=== PATIENT | male | born 1955 | race Caucasian/White ===

== ENCOUNTER 2021-06-25 00:24 | Day surgery (SDC) | payer OTHER, SELFPAY ==
[2021-06-18 14:58] VITALS: BMI 19.6
[2021-06-25 08:54] VITALS: BP 116/70; PULSE 63; RESP 18; TEMP 36.1; O2SAT 100
--- NOTE | 2021-06-25 09:07 | P.PNAN_ITS ---
Anes - Initial Pre Proc Eval Procedure: Operation Date: 06/25/21 10:00 Proposed Procedures p Screening Colonoscopy - Ilan Cortés MD Date/Time: 06/25/21 09:07 Surgeon: Ilan Cortés MD Pre Op Diagnosis: neoplasm screening z12.11 Patient Data Age: 65 Gender: M Height: 1.8 m Weight: 60.1 kg Last Vital Signs Temp 36.1 C L 06/25/21 08:54 Pulse 63 06/25/21 08:54 Resp 18 06/25/21 08:54 BP 116/70 06/25/21 08:54 Pulse Ox 100 06/25/21 08:54 Allergies Allergy/AdvReac Type Severity Reaction Status Date / Time No Known Allergies Allergy Verified 06/25/21 08:53 Home Medications Medication Instructions Recorded Confirmed Type loratadine 10 mg tablet 10 mg PO DAILY PRN 04/17/21 06/18/21 History magnesium 200 mg tablet 200 mg PO DAILY 04/17/21 06/18/21 History cholecalciferol (vitamin D3) 1,250 1,250 mcg PO WEEKLY #14 cap 05/04/21 06/18/21 Rx mcg (50,000 unit) capsule Patient hx anesthesia problems: none Family hx anesthesia problems: none Results Review: All pre-operative results and documents have been reviewed as part of the pre-operative evaluation. [facility] Past Medical History Medical History Dyslipidemia Environmental allergies History of renal calculi Mid back pain, chronic Recurrent genital herpes Skin cancer Surgical History Surgical History History of tonsillectomy (~1984) [place] teeth extracted (~1994) Family History Family History Father Alcoholism Asthma Depression Anxiety Heart disease Mother Hypertension Cerebrovascular accident Sibling Alcoholism Asthma Cancer Heart disease Hypertension Social History Social History Smoking status: Never smoker Alcohol intake: current Alcohol use details: Wine 5X yearly Substance use: never Living arrangements: with family Gender identity (if verbalized by the patient): Male Spiritual care concerns: No Anes - Eval Final PreProcedure Day of Procedure 06/25/21 09:07 Patient weight: normal Heart: regular rate and rhythm Lungs: clear to auscultation Airway: Mallampati scale class II Neurological: alert and oriented Last oral intake: >/= 8 hours ASA classification: II Emergent: no Anesthetic plan: proceed Anesthesia type and monitoring: general GIVS and standard monitoring Results Review: All pre-operative results and documents have been reviewed as part of the pre-operative evaluation. Informed Consent: The patient's anesthetic plan and its attendant risks and benefits were discussed with the patient/family/POA. Questions were solicited and answers provided to the satisfaction of the patient/family/POA.
[2021-06-25] MEDS: LACTATED RINGERS 1,000 ML 150 ML IV CONT (09:13)
--- NOTE | 2021-06-25 09:15 | WPDGICN ---
Assessment and Plan Assessment and plan (1) Encounter for screening colonoscopy: Code(s): Z12.11 - Encounter for screening for malignant neoplasm of colon Status: Acute Assessment and Plan: Patient presents for screening colonoscopy. Further recommendations will be given after endoscopy. GI Consult Note Consult date/time: 06/25/21 09:15 HPI: Pacheco Vargas is a 65 year old male Presents for screening colonoscopy. Patient reports that his current weight appetite and bowel movements are normal. Patient denies abdominal pain. He has had no bleeding. He presents today for neoplasia screening colonoscopy. Review of Systems Review of Systems: All systems reviewed & are unremarkable except as noted in HPI and below PMFSH Past Medical History Medical History Dyslipidemia Environmental allergies History of renal calculi Mid back pain, chronic Recurrent genital herpes Skin cancer Surgical History Surgical History History of tonsillectomy (~1984) [place] teeth extracted (~1994) Family History Family History Father Alcoholism Asthma Depression Anxiety Heart disease Mother Hypertension Cerebrovascular accident Sibling Alcoholism Asthma Cancer Heart disease Hypertension Social History Social History Smoking status: Never smoker Alcohol intake: current Alcohol use details: Wine 5X yearly Substance use: never Living arrangements: with family Gender identity (if verbalized by the patient): Male Spiritual care concerns: No Meds Home Medications and Allergies Home Medications Medication Instructions Recorded Confirmed Type loratadine 10 mg tablet 10 mg PO DAILY PRN 04/17/21 06/18/21 History magnesium 200 mg tablet 200 mg PO DAILY 04/17/21 06/18/21 History cholecalciferol (vitamin D3) 1,250 1,250 mcg PO WEEKLY #14 cap 05/04/21 06/18/21 Rx mcg (50,000 unit) capsule Allergies Allergy/AdvReac Type Severity Reaction Status Date / Time No Known Allergies Allergy Verified 06/25/21 08:53 Vital Signs Vital Signs - 24 hr 06/25/21 08:54 Temperature 97.0 F L Pulse Rate 63 Respiratory Rate 18 Blood Pressure 116/70 Pulse Oximetry 100 Exam Narrative: Physical exam reveals patient be alert. Vital signs stable. HEENT exam is unremarkable. Patient is anicteric. Lungs are clear to auscultation and percussion. Heart is without murmur or extra sounds. Abdominal exam bowel sounds are present soft nontender with no organomegaly. Digital external rectal exam is normal.
[2021-06-25 09:36] VITALS: BP 112/65; PULSE 71; RESP 17; O2SAT 100
[2021-06-25 09:46] VITALS: BP 110/57; PULSE 66; RESP 17; O2SAT 100
[2021-06-25 09:55] VITALS: BP 114/68; PULSE 53; RESP 20; O2SAT 100
== END 2021-06-25 10:15 | disposition home or self-care (01) ==
PROVIDERS: PCP Family Medicine; Visit Provider Internal Medicine Gastroenterology
PROC: 0DJD8ZZ Inspection of Lower Intestinal Tract, Via Natural or Artificial Opening Endoscopic (ICD-10-PCS; CPT 45378; principal; 2021-06-25 10:00)
DX: Z12.11 Encounter for screening for malignant neoplasm of colon (principal); K64.1 Second degree hemorrhoids; E78.5 Hyperlipidemia, unspecified
CPT/HCPCS: 45378; J2704; J7120

== ENCOUNTER 2022-04-26 08:16 | Outpatient (CLI) | payer OTHER, SELFPAY ==
[2022-04-26 17:58] LABS: Basophils Absolute Auto 0.1 K/mm3 (0.0-0.1); Basophils Percent Auto 1.3 % (0.2-1.2); Eosinophils Absolute Auto 0.4 K/mm3 (0-0.3); Eosinophils Percent Auto 6.1 % (0-4.4); Hematocrit 45.1 % (42.0-52.0); Hemoglobin 14.3 g/dL (14.0-18.0); Immature Granulocyte Absolute 0.01 K/mm3 (0.00-0.031); Immature Granulocyte Percent A 0.2 % (0-0.5); Lymphocytes Absolute Auto 2.04 K/mm3 (0.9-3.2); Lymphocytes Percent Auto 33.4 % (18.3-44.2); Mean Corpuscular HGB Conc 31.7 g/dl (32-36); Mean Corpuscular Hemoglobin 30.6 pg (26-34); Mean Corpuscular Volume 96.4 fl (80-100); Mean Platelet Volume 11.6 fl (7.4-10.4); Monocytes Absolute Auto 0.6 K/mm3 (0.1-0.6); Monocytes Percent Auto 10.3 % (2.6-8.5); Neutrophils Percent Auto 48.7 % (45.5-73.1); Platelet Count Result 237 k/mm3 (150-375); Red Blood Count 4.68 M/mm3 (4.6-6.20); Red Cell Distribution Width 13.6 % (11.5-14.5); White Blood Count 6.1 K/mm3 (4.5-10.0)
[2022-04-26 18:06] LABS: Alanine Aminotransferase 24 U/L (6-50); Albumin Level 4.1 g/dL (3.5-5.1); Alkaline Phosphatase 90 U/L (38-126); Anion Gap 9 mmol/L (8-16); Aspartate Amino Transferase 41 U/L (17-59); Bilirubin,Total 0.8 mg/dL (0.2-1.3); Blood Urea Nitrogen 19 mg/dL (9-20); Calcium 10.2 mg/dL (8.4-10.2); Carbon Dioxide 29 mmol/L (22-30); Chloride 105 mmol/L (98-107); Cholesterol 194 mg/dL (0-200); Estimated Glomerular Filt Rate > 60; Glucose 92 mg/dL (65-110); HDL Direct 38 mg/dL; Potassium 4.6 mmol/L (3.4-5.0); Sodium 143 mmol/L (137-145); Triglycerides 119 mg/dL (<150)
[2022-04-26 18:17] LABS: LDL Cholesterol Direct 119 mg/dL
== END 2022-04-26 08:17 | disposition home or self-care (01) ==
LOC: ANHGOSHLAB 08:18
PROVIDERS: PCP Family Medicine; Visit Provider Family Medicine
DX: E55.9 Vitamin D deficiency, unspecified (principal); Z12.5 Encounter for screening for malignant neoplasm of prostate; E78.5 Hyperlipidemia, unspecified; Z13.29 Encounter for screening for other suspected endocrine disorder
CPT/HCPCS: 36415; 80053; 80061; 82306; 84153; 85025; G0103

== ENCOUNTER 2023-04-24 08:40 | Outpatient (CLI) | payer OTHER, SELFPAY ==
[2023-04-24 13:04] LABS: Basophils Absolute Auto 0.1 K/mm3 (0.0-0.1); Basophils Percent Auto 1.4 % (0.2-1.2); Eosinophils Absolute Auto 0.3 K/mm3 (0-0.3); Eosinophils Percent Auto 5.2 % (0-4.4); Hematocrit 45.3 % (42.0-52.0); Hemoglobin 14.3 g/dL (14.0-18.0); Immature Granulocyte Absolute 0.01 K/mm3 (0.00-0.031); Immature Granulocyte Percent A 0.2 % (0-0.5); Lymphocytes Absolute Auto 2.03 K/mm3 (0.9-3.2); Lymphocytes Percent Auto 32.2 % (18.3-44.2); Mean Corpuscular HGB Conc 31.6 g/dl (32-36); Mean Corpuscular Hemoglobin 30.4 pg (26-34); Mean Corpuscular Volume 96.4 fl (80-100); Mean Platelet Volume 11.1 fl (7.4-10.4); Monocytes Absolute Auto 0.6 K/mm3 (0.1-0.6); Monocytes Percent Auto 9.5 % (2.6-8.5); Neutrophils Absolute Auto 3.2 K/mm3 (1.3-6.7); Neutrophils Percent Auto 51.5 % (45.5-73.1); Platelet Count Result 227 k/mm3 (150-375); Red Cell Distribution Width 13.2 % (11.5-14.5); White Blood Count 6.3 K/mm3 (4.5-10.0)
[2023-04-24 13:12] LABS: Alanine Aminotransferase 28 U/L (6-50); Albumin Level 4.1 g/dL (3.5-5.1); Alkaline Phosphatase 82 U/L (38-126); Anion Gap 4 mmol/L (8-16); Aspartate Amino Transferase 39 U/L (17-59); Bilirubin,Total 0.9 mg/dL (0.2-1.3); Blood Urea Nitrogen 20 mg/dL (9-20); Calcium 9.7 mg/dL (8.4-10.2); Carbon Dioxide 29 mmol/L (22-30); Chloride 106 mmol/L (98-107); Cholesterol 198 mg/dL (0-200); Estimated Glomerular Filt Rate > 60; Glucose 88 mg/dL (65-110); HDL Direct 35 mg/dL; Potassium 5.1 mmol/L (3.4-5.0); Sodium 139 mmol/L (137-145); Triglycerides 98 mg/dL (<150)
[2023-04-24 13:23] LABS: LDL Cholesterol Direct 120 mg/dL
[2023-04-24 13:44] LABS: Prostate Specific Antigen 2.3 ng/mL (< OR = 4.0)
[2023-04-24 23:29] LABS: Vitamin D 25 Hydroxy 46.3 ng/mL
== END 2023-04-24 08:41 | disposition home or self-care (01) ==
LOC: ANHGOSHLAB 08:41
PROVIDERS: PCP Family Medicine; Visit Provider Family Medicine
DX: E78.5 Hyperlipidemia, unspecified (principal); E55.9 Vitamin D deficiency, unspecified; R63.4 Abnormal weight loss; E53.8 Deficiency of other specified B group vitamins; Z12.5 Encounter for screening for malignant neoplasm of prostate; Z79.899 Other long term (current) drug therapy; Z13.29 Encounter for screening for other suspected endocrine disorder
CPT/HCPCS: 36415; 80053; 80061; 82306; 82607; 84153; 84443; 85025; G0103

== ENCOUNTER 2024-04-29 08:19 | Outpatient (CLI) | payer OTHER, SELFPAY ==
[2024-04-29 19:38] LABS: Alanine Aminotransferase 22 U/L (6-50); Albumin Level 4.5 g/dL (3.5-5.1); Alkaline Phosphatase 91 U/L (38-126); Anion Gap 8 mmol/L (4-12); Aspartate Amino Transferase 40 U/L (17-59); Bilirubin,Total 1.1 mg/dL (0.2-1.3); Blood Urea Nitrogen 22 mg/dL (9-20); Calcium 9.7 mg/dL (8.4-10.2); Carbon Dioxide 30 mmol/L (22-30); Chloride 103 mmol/L (98-107); Cholesterol 252 mg/dL (0-200); Estimated Glomerular Filt Rate > 60; Glucose 78 mg/dL (65-110); HDL Direct 38 mg/dL; Potassium 5.2 mmol/L (3.4-5.0); Sodium 141 mmol/L (137-145); Triglycerides 158 mg/dL (<150)
[2024-04-29 19:49] LABS: LDL Cholesterol Direct 171 mg/dL
[2024-04-29 20:03] LABS: Prostate Specific Antigen 2.1 ng/mL (< OR = 4.0)
[2024-04-29 20:22] LABS: Hematocrit 47.2 % (42.0-52.0); Mean Corpuscular HGB Conc 31.8 g/dl (32-36); Mean Corpuscular Volume 97.5 fl (80-100); Mean Platelet Volume 11.8 fl (7.4-10.4); Platelet Count Result 214 k/mm3 (150-375); Red Blood Count 4.84 M/mm3 (4.6-6.20); Red Cell Distribution Width 13.6 % (11.5-14.5); White Blood Count 5.9 K/mm3 (4.5-10.0)
== END 2024-04-29 08:20 | disposition home or self-care (01) ==
LOC: ANHGOSHLAB 08:21
PROVIDERS: PCP Family Medicine; Visit Provider Nurse Practitioner
DX: Z00.00 Encounter for general adult medical examination without abnormal findings (principal); Z11.59 Encounter for screening for other viral diseases; E55.9 Vitamin D deficiency, unspecified; Z12.5 Encounter for screening for malignant neoplasm of prostate
CPT/HCPCS: 36415; 80053; 80061; 82306; 84153; 84443; 85027; 86803; G0103

== ENCOUNTER 2024-10-27 14:21 | Outpatient (CLI) | payer OTHER, SELFPAY ==
--- NOTE | ~2024-10-27 | XR_ITS ---
EXAM: XR shoulder LT min 2V DATE: 10/27/2024 14:33 HISTORY: M25.512 - Pain in left shoulder . COMPARISON: None available. FINDINGS: Decreased mineralization. No fracture or dislocation. No lytic or blastic lesion. Mild deg enerative changes at the glenohumeral and acromioclavicular joints. No erosion or periosteal change. Soft tissues within normal limits. IMPRESSION: Osteopenia. Mild polyarticular osteoarthritis of the left shoulder. Reviewed, dictated and finalized at location K. EF CHARGE NURSE
== END 2024-10-27 14:22 | disposition home or self-care (01) ==
LOC: GOSHIMG 14:22
PROVIDERS: PCP Family Medicine; Visit Provider Family Medicine
DX: M85.812 Other specified disorders of bone density and structure, left shoulder (principal); M25.512 Pain in left shoulder
CPT/HCPCS: 73030

== ENCOUNTER 2024-10-29 08:03 | Outpatient (CLI) | payer OTHER, SELFPAY ==
[2024-10-29 13:53] LABS: Alanine Aminotransferase 31 U/L (6-50); Albumin Level 4.2 g/dL (3.5-5.1); Alkaline Phosphatase 97 U/L (38-126); Anion Gap 8 mmol/L (4-12); Aspartate Amino Transferase 47 U/L (17-59); Bilirubin,Total 0.9 mg/dL (0.2-1.3); Blood Urea Nitrogen 19 mg/dL (9-20); Carbon Dioxide 31 mmol/L (22-30); Chloride 105 mmol/L (98-107); Cholesterol 155 mg/dL (0-200); Estimated Glomerular Filt Rate > 60; Glucose 80 mg/dL (65-110); HDL Direct 46 mg/dL; Potassium 5.1 mmol/L (3.4-5.0); Sodium 144 mmol/L (137-145); Triglycerides 73 mg/dL (<150); Vitamin D 25 Hydroxy 35.7 ng/mL
[2024-10-29 14:04] LABS: LDL Cholesterol Direct 97 mg/dL
[2024-10-29 14:37] LABS: Hemoglobin A1C 5.5 % (<5.7)
== END 2024-10-29 08:04 | disposition home or self-care (01) ==
LOC: ANHGOSHLAB 08:03
PROVIDERS: PCP Family Medicine; Visit Provider Family Medicine
DX: E78.5 Hyperlipidemia, unspecified (principal); Z79.899 Other long term (current) drug therapy; I10 Essential (primary) hypertension; E55.9 Vitamin D deficiency, unspecified; R73.9 Hyperglycemia, unspecified
CPT/HCPCS: 36415; 80053; 80061; 82306; 83036

== ENCOUNTER 2025-05-20 08:22 | Outpatient (CLI) | payer OTHER, SELFPAY ==
--- OUTSIDE RECORDS SUMMARY | 2019-11-14 18:11 | XMS_ITS | Continuity of Care Document ---
Author Organization [facility] Address [address] [place] [address] [place] [address] Phone Care Team Providers Care Avionics Mechanic Name Role Phone Kelby Hector MD Unavailable Unavailable Allergies, Adverse Reactions, Alerts Substance Reaction Status Criticality No Known Allergies Active No Inform ation Medications Medication Instructions Dosage Effective Dates (start - stop) Status Comments Valtrex 1 gram tablet take 1 tablet by oral route every day 1000 MG - Active Procedures Procedure Date PREV VISIT, EST, AGE 40-64 OFFICE/OUTPATIENT VISIT, EST OFFICE/OUTPATIENT VISIT, EST PREV VISIT, NEW, AGE 40-64 OFFICE/OUTPATIENT VISIT, NEW Advance Directives Directive Yes / No Effective Date File Name No Information Encounters Encounter Description Practice Location Reason(s) For Visit Diagnoses Date Provider Providers Copied on Encounter [facility], [address] [place], [id number], tel:[phone] [facility] No Information 0 Krunal Lama. [address], [address], [id number] , [place]. tel:[phone] Referring Provider: Kelby Hector, [address], [id number]. tel:[phone] PREV VISIT, EST, AGE 40-64 [facility], [address] [place], [place], [id number], [place] tel:[phone] [facility] physical (chief complaint) HyperlipidemiaHerpe sviral infection of other male genital organsEncounter for general adult medical exam w abnormal findingsNevus, non-neoplastic 0 [phone] Krunal Lama. [address], [place], [place], [id number] , [place]. [phone] Referring Provider: Jerilyn Noguera [address], [place], [place], [id number]. tel:[phone] OFFICE/OUTPA TIENT VISIT, [facility], [address], [place], [place], [id number], [place] tel:[phone] [facility] HSV II (chief complaint) HLP (chief complaint) URI (chief complaint) HyperlipidemiaAcute bronchitisHerpesvir al infection of other male genital organs 8 Krunal Lama. [address], [place], [place], [id number] , [place]. tel:[phone] Referring Provider: Jerilyn Nougera [facility], [place], [place], [id number]. tel:[phone] PREV VISIT, NEW, AGE 40-64 [facility], [address], [place], [place], [id number], [place] tel:[phone] [facility] PHysical (chief complaint) Encounter for general adult medical exam w abnormal findingsHerpesviral infection of other male genital organsEncounter for screening for other viral diseasesNevus, non-neoplasticPain in left shoulder 8 [facility]al [address] [facility] [address] [place], [place], [address] , [place]. [phone] Referring Provider: Jerilyn Noguera [address] [facility] [address], [place], [place], [id number]. tel:[phone] Family History Family Member Type Diagnosis Age At Onset Father Problem (finding) of cardia c related issue (Cause Of ) 81 Brother Problem (finding) prostate CA 62 Mother Problem (finding) of 95 for age rela leigha issue Payers Payer name Insurance type Covered green party ID Authoriza tion(s) No Information Social History Type Description Quantity Date Captured Comments Alcohol Use Details Unknown Caffeine Use Details Unknown Tobacco Use Status No Information Smoking Status No Information Sex Male Chief Complaint And Reason For Visit No Information Plan Of Treatment Date Type Action Status Goal Tobacco cessation counseling completed Goal Tobacco cessation counseling completed Referral Ordered: COLONOSCOPY AND BIOPSY ordered Referral Ordered: Edwin Trevino [facility] : Surgery (related to Nevus, non-neoplastic) ordered Referral Referred To: Edwin Trevino [facility] [address] [place] [id number] Ordered: Referrals: [facility] : Surgery. Edwin Trevino. Evaluate and treat ordered History Of Present Illness Encounter Date Complaint History Of Prese nt Illness physical Pt needs annual physical pt has history of HLP Pt is working on low fat diet. pt did not repeat lab last summer Pt has HSV II Pt takes valtrex PRn Pt states that he has outbreak 2-3 per year Pt thinks that it is related to stress. Pt overall feels well. Pt denies any other complaints HLP Pt has HLP. Pt d id lab fasting. pt has been eating poorly recently due to work schedule HSV II Pt started new j ob and he has been having more stress and he has recurrent HSV recently and he needs refill of valtrex pt had 2-3 episodes recently Pt denies any active outbreak now. Pt denies any penile discharge URI The patient pres ents with chills, cough and fever. The patient does not present with abdominal pain, diarrhea, earache, fatigue, headache or vomiting. The patient denies constipation, dyspnea, malaise, pruritus, rash, weight gain and weight loss. Additional information: Pt c/o productive coughing with green phlegm, sinus congestion, sore throat, chills, low grade temp for one week. pt has mild loose stool. Pt denies any nausea, vomiting. Pt denies any sick contact. Pt denies any blood in stool. pt will travel to [place] next week and does not want to be sick. PHysical Pt needs annual physical pt has genital herpes and he takes valtrex PRN only. Pt had break out about 4 times last year. Pt states that he was having some more stress last year and usually he has break out about once per year. Pt has history of ? basal cell and he had surgical removal in the past Pt needs skin check. Pt denies any suspicious spots now. Pt has family history of prostate CA. Pt denies any urinary symptoms Pt denies any urgency and frequency and dribbling. Pt c/o left shoulder pain for several months Pt has seening chiropractor and helping Pt denies any other complaints Instructions Date Instruction Additional Infor mation Follow a low sodium diet. Relate d to Hyperlipidemia Increase activity. Related to Hy perlipidemia Follow a low sodium diet. Relate d to Hyperlipidemia Increase physical activity Relat ed to Encounter for general adult medical exam w abnormal findings Assessments Type Assessment Date No Information
[2025-05-20 13:27] LABS: Hematocrit 46.8 % (42.0-52.0); Hemoglobin 14.4 g/dL (14.0-18.0); Immature Granulocyte Percent A 0.2 % (0-0.5); Lymphocytes Absolute Auto 1.81 K/mm3 (0.9-3.2); Mean Corpuscular HGB Conc 30.8 g/dl (32-36); Mean Corpuscular Hemoglobin 30.3 pg (26-34); Mean Corpuscular Volume 98.5 fl (80-100); Nucleated Red Blood Cells Absolute Auto 0.000 K/mm3 (0.0-0.012); Nucleated Red Blood Cells Perc 0.0 % (0.0-0.2); Platelet Count Result 228 k/mm3 (150-375); Red Blood Count 4.75 M/mm3 (4.6-6.20); White Blood Count 6.3 K/mm3 (4.5-10.0)
[2025-05-20 13:35] LABS: Alanine Aminotransferase 34 U/L (6-50); Albumin Level 4.2 g/dL (3.5-5.1); Alkaline Phosphatase 81 U/L (38-126); Anion Gap 8 mmol/L (4-12); Aspartate Amino Transferase 57 U/L (17-59); Bilirubin,Total 0.9 mg/dL (0.2-1.3); Blood Urea Nitrogen 19 mg/dL (9-20); Calcium 9.7 mg/dL (8.4-10.2); Carbon Dioxide 29 mmol/L (22-30); Chloride 104 mmol/L (98-107); Cholesterol 161 mg/dL (0-200); Estimated Glomerular Filt Rate > 60; Glucose 79 mg/dL (65-110); HDL Direct 40 mg/dL; Potassium 4.9 mmol/L (3.4-5.0); Sodium 141 mmol/L (137-145); Total Protein 7.6 g/dL (6.3-8.2); Triglycerides 76 mg/dL (<150)
[2025-05-20 14:09] LABS: Thyroid Stimulating Hormone Reflex 2.720 uIU/mL (0.465-4.68)
[2025-05-20 14:13] LABS: Prostate Specific Antigen 2.5 ng/mL (< OR = 4.0)
[2025-05-20 14:57] LABS: Hemoglobin A1C 4.9 % (<5.7)
[2025-05-20 15:09] LABS: Vitamin B12 578.0 pg/mL (239-931)
== END 2025-05-20 08:23 | disposition home or self-care (01) ==
LOC: ANHGOSHLAB 08:23
PROVIDERS: PCP Family Medicine; Visit Provider Family Medicine
DX: Z00.00 Encounter for general adult medical examination without abnormal findings (principal); I10 Essential (primary) hypertension; E78.5 Hyperlipidemia, unspecified; Z12.5 Encounter for screening for malignant neoplasm of prostate; R73.9 Hyperglycemia, unspecified; E53.8 Deficiency of other specified B group vitamins; E55.9 Vitamin D deficiency, unspecified
CPT/HCPCS: 36415; 80053; 80061; 82306; 82607; 83036; 84153; 84443; 85025; G0103

== ENCOUNTER 2025-06-17 08:44 | Outpatient (CLI) | payer OTHER, SELFPAY ==
--- NOTE | ~2025-06-17 | XR_ITS ---
EXAMINATION: XR pelvis 1-2V, 06/17/2025 8:55 CDT HISTORY: M54.50 - Low back pain, unspecified COMPARISON: No comparisons available. Findings: No acute fracture or malalignment. No significant degenerative changes. Soft tissues unremarkable. Impression: No acute fracture or malalignment. Reviewed, dictated and finalized at location A. Impression: No acute fracture or malalignment.
--- NOTE | ~2025-06-17 | XR_ITS ---
XR lumbar spine 6V w bending Indication: Low back pain, unspecified, pain x 1 week Comparison: None Findings: No fracture, no subluxation in flexion and extension The disc heights are intact. Soft tissues unremarkable Impression: No acute abnormality. Reviewed, dictated and finalized at location A. Impression: No acute abnormality.
== END 2025-06-17 08:45 | disposition home or self-care (01) ==
PROVIDERS: PCP Family Medicine; Visit Provider Nurse Practitioner Family
DX: M54.50 Low back pain, unspecified (principal)
CPT/HCPCS: 72114; 72170